=== PATIENT | male | born 1990 | race African-American/Black ===

== ENCOUNTER 2018-05-01 01:04 | Emergency (ER) | payer OTHER ==
[~2018-05-01] VITALS: Ht 182.9 cm; Wt 84.0 kg
[2018-05-01] MEDS ORDERED: KETOROLAC 30MG/ML VIAL IV STA (06:19)
[2018-05-01 08:34] VITALS: BP 123/78
== END 2018-05-01 08:54 | disposition home or self-care (01) ==
LOC: ER 01:04
DX: S16.1XXA Strain of muscle, fascia and tendon at neck level, initial encounter (principal); M54.5 Low back pain; F17.210 Nicotine dependence, cigarettes, uncomplicated; X58.XXXA Exposure to other specified factors, initial encounter; Y93.67 Activity, basketball; Y92.89 Other specified places as the place of occurrence of the external cause
CPT/HCPCS: 72040; 72100; 96374; 99283; J1885; Z7610

== ENCOUNTER 2018-06-24 23:25 | Emergency (ER) | payer SELFPAY ==
[~2018-06-24] VITALS: Ht 182.9 cm; Wt 88.0 kg
[2018-06-25 01:14] VITALS: BP 119/64
[2018-06-25] MEDS ORDERED: ACETAMINOPHEN WITH CODEINE 300/30MG TABLET PO ONE (01:15)
== END 2018-06-25 02:27 | disposition home or self-care (01) ==
LOC: ER 23:25
DX: M54.5 Low back pain (principal); X58.XXXA Exposure to other specified factors, initial encounter; Y93.67 Activity, basketball; Y92.89 Other specified places as the place of occurrence of the external cause
CPT/HCPCS: 99283

== ENCOUNTER 2018-06-30 01:37 | Emergency (ER) | payer SELFPAY ==
[~2018-06-30] VITALS: Ht 182.9 cm; Wt 88.0 kg
[2018-06-30] MEDS ORDERED: IBUPROFEN 800MG TABLET PO ONE (06:45)
[2018-06-30 08:15] VITALS: BP 116/62
== END 2018-06-30 08:30 | disposition home or self-care (01) ==
LOC: ER 01:37
DX: M25.561 Pain in right knee (principal); W03.XXXA Other fall on same level due to collision with another person, initial encounter; Y93.67 Activity, basketball; Y92.89 Other specified places as the place of occurrence of the external cause
CPT/HCPCS: 73562; 99282

== ENCOUNTER 2024-03-25 10:37 | Emergency (ER) | payer OTHER ==
[~2024-03-25] VITALS: Ht 182.9 cm; Wt 88.5 kg
[2024-03-25 10:51] VITALS: BP 119/73; PULSE 72; RESP 16; TEMP 98.7; O2SAT 100
== END 2024-03-25 11:59 | disposition left against medical advice (07) ==
LOC: ER 10:58
DX: R10.9 Unspecified abdominal pain (principal); M54.9 Dorsalgia, unspecified; Z53.21 Procedure and treatment not carried out due to patient leaving prior to being seen by health care provider

== ENCOUNTER 2024-08-25 15:36 | Emergency (ER) | payer OTHER ==
[~2024-08-25] VITALS: Ht 182.9 cm; Wt 84.3 kg
[2024-08-25 15:39] VITALS: TEMP 36.9; O2SAT 100
[2024-08-25] MEDS: TETRACAINE 0.5% OPHTH DROPS 4ML LEFTEYE ONE (17:15)
[2024-08-25] MEDS: FLUORESCEIN SODIUM 1MG/STRIP LEFTEYE ONE (17:15)
[2024-08-25] MEDS ORDERED: DEXT15DR5 EACHEYE (18:29)
[2024-08-25 18:41] VITALS: BP 116/72; PULSE 60; RESP 16; O2SAT 100
== END 2024-08-25 18:46 | disposition home or self-care (01) ==
LOC: ER 15:36
DX: S63.602A Unspecified sprain of left thumb, initial encounter (principal); Z79.899 Other long term (current) drug therapy; X58.XXXA Exposure to other specified factors, initial encounter; Y93.89 Activity, other specified; Y92.89 Other specified places as the place of occurrence of the external cause; Y99.8 Other external cause status
CPT/HCPCS: 73140; 99283